=== PATIENT | female | born 1980 | race Two or more races ===

== ENCOUNTER → 2017-12-04 | Emergency (ER) | payer OTHER ==
[~2017-12-04] VITALS: Ht 154.9 cm; Wt 55.8 kg
== END | disposition home or self-care (01) ==
LOC: ER 17:15
DX: N93.8 Other specified abnormal uterine and vaginal bleeding (principal)

== ENCOUNTER 2022-01-27 12:00 | Inpatient (IN) | payer OTHER ==
[~2022-01-27] VITALS: Ht 154.9 cm; Wt 2.7 kg
[2022-02-17] MEDS ORDERED: PRENATAL TABLE1 EAC3 (08:58)
[2022-02-17] MEDS ORDERED: FOLIC ACID20 MG (08:59)
== END 2022-02-20 13:33 | disposition home or self-care (01) | DRG 788 ==
LOC: LDR 02-16 12:00 → O/R 02-17 11:10 → OB/GYN 02-17 12:42
PROVIDERS: Obstetrics & Gynecology; ADMIT Obstetrics & Gynecology Maternal & Fetal Medicine; ATTEND Obstetrics & Gynecology Maternal & Fetal Medicine
PROC: 4A1HXCZ Monitoring of Products of Conception, Cardiac Rate, External Approach (ICD-10-PCS; 2022-02-17)
PROC: 10D00Z1 Extraction of Products of Conception, Low, Open Approach (ICD-10-PCS; principal; 2022-02-17 12:00)
DX: O76 Abnormality in fetal heart rate and rhythm complicating labor and delivery (principal); O48.0 Post-term pregnancy; Z3A.40 40 weeks gestation of pregnancy; Z37.0 Single live birth; Z20.822 Contact with and (suspected) exposure to COVID-19

== ENCOUNTER 2022-02-12 14:48 | Outpatient (CLI) | payer OTHER | END 2022-02-13 07:19 | disposition home or self-care (01) | LOC: NST 14:48 | PROVIDERS: ATTEND Obstetrics & Gynecology Maternal & Fetal Medicine | DX: Z34.83 Encounter for supervision of other normal pregnancy, third trimester (principal) ==